=== PATIENT | male | born 2000 | race Caucasian/White ===

== ENCOUNTER 2019-05-09 11:04 | Observation (INO) ==
[2019-05-09] MEDS ORDERED: KETOROLAC 30 MG/ML VIAL IV STA (11:44)
[2019-05-09] MEDS ORDERED: ONDANSETRON INJ 2 MG/ML 2 ML VIAL IV STA (11:44)
[2019-05-09] MEDS ORDERED: SODIUM CHLORIDE 0.9% 1000ML 1,000 ML IV SCH (11:45)
[2019-05-09 12:01] LABS: Basophils # (auto) 0.02 K/uL (0-0.2); Basophils % (auto) 0.2 %; Eosinophils # (auto) 0.05 K/uL (0-0.5); Eosinophils % (auto) 0.4 %; Hematocrit (blood only) 40.5 % (42-52); Hemoglobin 14.8 g/dL (14.0-18.0); Immature Granulocytes # (auto) 0.03 K/uL (0.00-0.02); Immature Granulocytes % (auto) 0.3 %; Lymphocytes # (auto) 1.31 K/uL (1.2-3.4); Mean Corpuscular Hemoglobin 31.1 pg (25-34); Mean Corpuscular Hgb Conc 36.5 g/dL (32-36); Mean Corpuscular Volume 85.1 fL (80-100); Mean Platelet Volume 11.5 fL (7.4-10.4); Monocytes # (auto) 0.84 K/uL (0.11-0.59); Monocytes % (auto) 7.1 %; Neutrophils # (auto) 9.64 K/uL (1.4-6.5); Platelet Count 167 K/uL (130-400); RDW Coefficient of Variation 11.8 % (11.5-14.5); RDW Standard Deviation 36.2 fL (36.4-46.3); Red Blood Count 4.76 M/uL (4.7-6.1); White Blood Count 11.89 K/uL (4.8-10.8)
[2019-05-09 12:18] LABS: Albumin Level 4.4 gm/dl (3.4-5.0); BUN Creatinine Ratio 11.1 (10-20); Calcium 9.8 mg/dl (8.5-10.1); Creatinine Clr Calc Pharmacy 100.8 ml/min; Est GFR (African American) 106.3; Est GFR (Non-African American) 91.7; Potassium 3.7 mmol/L (3.5-5.1)
[2019-05-09 12:21] LABS: Globulin 4.2 gm/dl (2.5-4.0); Total Protein 8.6 gm/dl (6.4-8.2)
--- NOTE | 2019-05-09 12:51 | Emergency Department Note ---
History of Present Illness General Chief complaint: Abdominal Pain Stated complaint: ABD PAIN Time Seen by Provider: 05/09/19 11:39 History of Present Illness Maximum Pain Intensity: 6 This is a 18-year-old male that is otherwise healthy the presents to the emergency department via private vehicle accompanied by female with complaints of "right lower quadrant abdominal pain". The patient notes that without any trauma or injury he developed sudden onset right lower quadrant abdominal pain. He notes that this has been ongoing for the past 36 hours. It is constant. It is worse with movement. He denies any fevers, chills, nausea, vomiting, significant past medical history, history of abdominal surgeries or allergies. He denies taking any medication today. The pain is a 7/10. He denies any dysuria, hematuria, nausea, constipation or diarrhea. Home Medications Home Medications Medication Instructions Recorded Confirmed Type Tums 4 tabs PO UD PRN 05/09/19 05/09/19 History Allergies Allergy/AdvReac Type Severity Reaction Status Date / Time No Known Allergies Allergy Unverified 05/09/19 12:41 Past Med/Surg History Medical History No significant past surgical history Surgical History No significant past medical history Social History Preferred Language: Kazakh Communication Ability: Effective House Manager Required: No Beliefs That Will Affect Care: None Current Living Situation: Other Current Living Situation Comment: student housing, 3 roommates Feels Safe at Home: Yes Safety Concerns: Feels Safe At This Time Smoking Status: Never smoker Hx Alcohol Use: Yes Alcohol type: beer, wine and hard liquor Hx Substance Use: No Review of Systems A total of 10 systems reviewed and were otherwise negative Physical Exam Vital Signs Vital Signs - 24 hr 05/09/19 11:15 05/09/19 12:42 05/09/19 15:18 Temperature 36.5 C Temperature Source Oral Sepsis Recent Fever Within 48 Hours No Sepsis New/Unexplained Change in Mental Status No Sepsis Action Taken by Nursing No Action Required Pulse Rate 73 Pulse Rate [Apical] 60 69 Respiratory Rate 16 18 18 Respiratory Effort / Characteristics Non-Labored Respiratory Depth Normal Blood Pressure 145/97 H Blood Pressure [Left Arm] 152/86 H 173/81 H Blood Pressure Mean 113 Blood Pressure Mean [Left Arm] 108 111 Pulse Oximetry 98 100 98 Oxygen Delivery Method Room Air Room Air Room Air 05/09/19 16:04 05/09/19 18:03 Temperature Temperature Source Sepsis Recent Fever Within 48 Hours Sepsis New/Unexplained Change in Mental Status Sepsis Action Taken by Nursing Pulse Rate 81 Pulse Rate [Apical] 80 Respiratory Rate 18 18 Respiratory Effort / Characteristics Non-Labored Respiratory Depth Normal Blood Pressure 147/75 H Blood Pressure [Left Arm] 149/69 H Blood Pressure Mean Blood Pressure Mean [Left Arm] 95 Pulse Oximetry 99 99 Oxygen Delivery Method Room Air VITAL SIGNS - Vital signs and nursing notes were reviewed. Stable. GENERAL - 18-year-old male appearing his stated age who is in no acute distress but appears to be in pain. Communicates well with provider and answers questions appropriately. SKIN - Without rashes. HEAD - NC/AT. EYES - PERRL with EOMI bilaterally. Sclera anicteric. EARS - No deformities of external structures noted on gross examination bilaterally. NOSE - Midline and without cyanosis. No epistaxis or purulent drainage noted. LUNGS - Chest wall symmetric without accessory muscle use, intercostals retractions, or central cyanosis. Normal vesicular breath sounds CTA B/L. No wheezes, rales, or rhonchi appreciated. CARDIAC - RRR with S1/S2. No murmur, rubs, or gallops appreciated. ABDOMEN - Abdominal contour normal without pulsations or visible masses. BS normoactive all four quadrants. There is right lower quadrant abdominal tenderness on exam. No palpable masses, hepatosplenomegaly, or ascites noted. EXTREMITIES - No clubbing or peripheral cyanosis. No pretibial edema present. +5/5 strength noted in UE/LE bilaterally. NEUROLOGIC - Cranial nerves II through XII grossly intact. Sensory intact to light touch throughout. PSYCH - A&O, and cooperates fully with examiner. Pt is very pleasant and interacts well with examiner. Course Administered Medications Discontinued Medications Bupivacaine HCl (Marcaine 0.5% Mpf) Confirm Administered Dose 30 ml .ROUTE .STK- MED ONE Stop: 05/09/19 18:17 Last Admin: 05/09/19 19:26 Dose: 12 ml Documented by: [id number] Cefazolin Sodium (Ancef) Confirm Administered Dose 1,000 mg .ROUTE .STK-MED ONE Stop: 05/09/19 18:17 Last Admin: 05/09/19 19:25 Dose: 1,000 mg Documented by: [id number] Cefazolin Sodium (Ancef) Confirm Administered Dose 2,000 mg .ROUTE .STK-MED ONE Stop: 05/09/19 19:09 Last Admin: 05/09/19 19:09 Dose: 2,000 mg Documented by: [id number] Heparin Sodium (Porcine) (Heparin Iv Bolus (Cattle Trader Use Only)) Confirm Administered Dose 10,000 units .ROUTE .STK-MED ONE Stop: 05/09/19 18:17 Last Admin: 05/09/19 19:25 Dose: 5,000 units Documented by: [id number] Sodium Chloride (Nss 1000ml) 1,000 mls @ 999 mls/hr IV .Q1H1M ISIDRA Stop: 05/09/19 12:45 Last Infusion: 05/09/19 13:45 Dose: 0 mls/hr Documented by: [id number] Admin: 05/09/19 12:02 Dose: 999 mls/hr Documented by: [id number] Ioversol (Optiray 320 100ml) 93 ml IV ONCE PRN PRN Reason: Interaction Checking Stop: 05/13/19 14:18 Last Admin: 05/09/19 14:20 Dose: 93 ml Documented by: [id number] Ketorolac Tromethamine (Toradol) 30 mg IV NOW STA Stop: 05/09/19 11:45 Last Admin: 05/09/19 12:02 Dose: 30 mg Documented by: [id number] Morphine Sulfate (Morphine Sulfate) 4 mg IV NOW STA Stop: 05/09/19 15:56 Last Admin: 05/09/19 16:01 Dose: 4 mg Documented by: [id number] Ondansetron HCl (Zofran) 4 mg IV NOW STA Stop: 05/09/19 11:45 Last Admin: 05/09/19 12:02 Dose: 4 mg Documented by: [id number] Medical Decision Making Laboratory Data Result diagrams: 05/09/19 11:48 05/09/19 11:48 Lab Results 05/09/19 05/09/19 05/09/19 Range/Units 11:48 11:48 13:00 WBC 11.89 H (4.8-10.8) K/uL RBC 4.76 (4.7-6.1) M/uL Hgb 14.8 (14.0-18.0) g/dL Hct 40.5 L (42-52) % MCV 85.1 (80-100) fL MCH 31.1 (25-34) pg MCHC 36.5 H (32-36) g/dL RDW Std Deviation 36.2 L (36.4-46.3) fL RDW Coeff of Stefani 11.8 (11.5-14.5) % Plt Count 167 (130-400) K/uL MPV 11.5 H (7.4-10.4) fL Immature Gran % (Auto) 0.3 % Neut % (Auto) 81.0 % Lymph % (Auto) 11.0 % Ogle % (Auto) 7.1 % Eos % (Auto) 0.4 % Baso % (Auto) 0.2 % Immature Gran # (Auto) 0.03 H (0.00-0.02) K/uL Neut # (Auto) 9.64 H (1.4-6.5) K/uL Lymph # (Auto) 1.31 (1.2-3.4) K/uL Ogle # (Auto) 0.84 H (0.11-0.59) K/uL Eos # (Auto) 0.05 (0-0.5) K/uL Baso # (Auto) 0.02 (0-0.2) K/uL Sodium 139 (136-145) mmol/L Potassium 3.7 (3.5-5.1) mmol/L Chloride 103 (98-107) mmol/L Carbon Dioxide 27 (21-32) mmol/L Anion Gap 9.0 (3-11) BUN 13 (7-18) mg/dl Creatinine 1.15 (0.6-1.4) mg/dl Est Cr Clr Drug Dosing 100.8 ml/min Est GFR ( Amer) 106.3 Est GFR (Non-Af Amer) 91.7 BUN/Creatinine Ratio 11.1 (10-20) Glucose 101 H (70-99) mg/dl Calcium 9.8 (8.5-10.1) mg/dl Total Bilirubin 2.0 H (0.2-1) mg/dl AST 23 (15-37) U/L ALT 25 (12-78) U/L Alkaline Phosphatase 80 (45-117) U/L Total Protein 8.6 H (6.4-8.2) gm/dl Albumin 4.4 (3.4-5.0) gm/dl Globulin 4.2 H (2.5-4.0) gm/dl Albumin/Globulin Ratio 1.0 (0.9-2) Lipase 61 L (73-393) U/L Urine Color Yellow Urine Appearance Clear (Clear) Urine pH 7.0 (4.5-7.5) Ur Specific [place] 1.027 (1.000-1.030) Urine Protein Negative (Negative) Urine Glucose (UA) Negative (Negative) Urine Ketones Negative (Negative) Urine Blood Negative (Negative) Urine Nitrite Negative (Negative) Urine Bilirubin Negative (Negative) Urine Urobilinogen Negative (Negative) Ur Leukocyte Esterase Negative (Negative) Imaging Data Radiologist's Impression: CT abd pelvis oral and IV con CLINICAL HISTORY: 18 years-old Male presenting with RLQ abd pain. TECHNIQUE: Multidetector CT of the abdomen and pelvis was performed after the administration of oral and intravenous contrast. IV contrast: 93 mL of Optiray 320. One or more dose lowering techniques were used consistent with the principles of ALARA (as low as reasonably achievable), including automatic exposure control, mA or kV adjustment to individual patient size, and/or use of iterative reconstruction. COMPARISON: None. CT DOSE (mGy.cm): The estimated cumulative dose is 274.63 mGy.cm. FINDINGS: Environmental Engineer topogram: Unremarkable. Lung bases: Normal heart size. No pericardial or pleural effusion. No focal infiltrate or nodule at the lung bases. Liver: Normal morphology. No liver lesion. Patent hepatic vasculature. Biliary: No intrahepatic or extrahepatic biliary ductal dilatation. Normal gallbladder. Pancreas: Normal. Spleen: Normal. Adrenal glands: Normal. Kidneys and ureters: Normal. No hydronephrosis. Bladder: Normal. Pelvic organs: Prostate and seminal vesicles normal. Bowel: The appendix is dilated and contains several appendicoliths, one near the base, which may be obstructing. The appendiceal mucosa is not well delineated, which may be in part due to adjacent opacified loops of bowel. The appendix does not opacify with contrast beyond its base. The appendix measures over a centimeter in diameter. No bowel obstruction. Peritoneal cavity: Small free fluid in the pelvis on expected for a male patient of this age. No free intraperitoneal gas. Lymph nodes: No enlarged lymph nodes in the abdomen or pelvis. Vasculature: Aorta and IVC patent and normal in caliber. Abdominal wall: Normal. Musculoskeletal: Normal. IMPRESSION: 1. Findings highly suspicious for acute appendicitis. Portal delineation of the appendiceal wall and mucosa is most likely due to the degree of opacification of adjacent bowel with positive oral contrast versus, less likely, wall necrosis. No evidence of abscess or other complication. Surgical consultation is advised. The report will be called/faxed according to standard departmental protocol. Electronically signed by: Pedro Dent M.D. 05/09/2019 2:35 PM [facility] Narrative Patient was seen and evaluated as above. Review was performed of nursing notes and vital signs. After obtaining a thorough history and physical examination the above work up was performed. He presents to us today with abdominal pain. He is nontoxic on exam. His exam is concerning for that of acute appendicitis. IV access was established. He was given Toradol for pain, Zofran for nausea and fluids. He was reevaluated with some improvement of symptoms. IV and oral contrasted CT of the abdomen and pelvis was ordered. This is concerning for acu te appendicitis. CBC reveals leukocytosis but no concerning anemia. No emergent metabolic abnormality. Urinalysis is negative. I discussed the findings with the on-call general surgeon. Patient will be taken to the operative suite for further evaluation and management. He was also given morphi ne for pain. In the evaluation and treatment of this patient, the following differential diagnoses were considered: ASC, DC, Pneumonia, GERD, Cholecystitis, Ascending Cholangitis, acute appendicitis, Cholydocholithiasis, Bowel Obstruction, PE, Amongst Others. Impression & Plan Appendicitis Discharge Plan Visit Data *Final* Discharge Date/Time: 05/09/19 18:03 Chief Complaint: Abdominal Pain Stated Complaint: ABD PAIN ED Provider: Arnie Reynoso ED Midlevel Provider: Elroy Moreira Discharge Problem: Appendicitis Patient Disposition: Admitted As Inpatient Condition: Good Discharge Instructions Interventions: ED Discharge Assessment Last Done: 05/09/19 18:03
[2019-05-09 13:12] LABS: Appearance Urine Clear (Clear); Bilirubin Urine Negative (Negative); Blood Urine Negative (Negative); Color Urine Yellow; Glucose Urine UA Negative (Negative); Ketones Urine Negative (Negative); Leukocyte Esterase Urine Negative (Negative); Nitrite Urine Negative (Negative); Protein Urine Negative (Negative); Specific Gravity Urine 1.027 (1.000-1.030); Urobilinogen Urine Negative (Negative)
[2019-05-09] MEDS ORDERED: IOVERSOL 100ml IV PRN (14:19)
--- NOTE | 2019-05-09 14:36 | CT Scan Report ---
CT abd pelvis oral and IV con CLINICAL HISTORY: 18 years-old Male presenting with RLQ abd pain. TECHNIQUE: Multidetector CT of the abdomen and pelvis was performed after the administration of oral and intravenous contrast. IV contrast: 93 mL of Optiray 320. One or more dose lowering techniques wer e used consistent with the principles of ALARA (as low as reasonably achievable), including automatic exposure control, mA or kV adjustment to individual patient size, and/or use of iterative reconstruc tion. COMPARISON: None. CT DOSE (mGy.cm): The estimated cumulative dose is 274.63 mGy.cm. FINDINGS: Language Translator topogram: Unremarkable. Lung bases: Normal heart size. No pericardial or pleural effusion. No focal infiltrate or nodule at t he lung bases. Liver: Normal morphology. No liver lesion. Patent hepatic vasculature. Biliary: No intrahepatic or extrahepatic biliary ductal dilatation. Normal gallbladder. Pancreas: Normal. Spleen: Normal. Adrenal glands: Normal. Kidneys and ureters: Normal. No hydronephrosis. Bladder: Normal. Pelvic organs: Prostate and seminal vesicles normal. Bowel: The appendix is dilated and contains several appendicoliths, one near the base, which may be o bstructing. The appendiceal mucosa is not well delineated, which may be in part due to adjacent opaci fied loops of bowel. The appendix does not opacify with contrast beyond its base. The appendix measur es over a centimeter in diameter. No bowel obstruction. Peritoneal cavity: Small free fluid in the pelvis on expected for a male patient of this age. No free intraperitoneal gas. Lymph nodes: No enlarged lymph nodes in the abdomen or pelvis. Vasculature: Aorta and IVC patent and normal in caliber. Abdominal wall: Normal. Musculoskeletal: Normal. IMPRESSION: 1. Findings highly suspicious for acute appendicitis. Portal delineation of the appendiceal wall and mucosa is most likely due to the degree of opacification of adjacent bowel with positive oral contra st versus, less likely, wall necrosis. No evidence of abscess or other complication. Surgical consult ation is advised. The report will be called/faxed according to standard departmental protocol. Electronically signed by: Pedro Dent M.D. 05/09/2019 2:35 PM
--- NOTE | 2019-05-09 15:48 | History & Physical Report ---
Date of Service May 09, 2019 Assessment & Plan (1) Appendicitis: This patient's history, physical findings, laboratories and CT findings are consistent with appendicitis. I reviewed the CT images as well as the report. I have recommended a laparoscopic appendectomy. I explained the p ossible need to convert to an open procedure. I explained the possible complications associated with those procedures. The patient wishes to go ahead with surgery and has signed a consent form. History of Present Illness Chief Complaint: Right lower quadrant abdominal pain Primary Care Provider: [facility] This is a 18-year-old male presented to the emergency room with an approximate 36-hour history of pain in the right lower quadrant. It began in the periumbilical region but then migrated to the right lower quadrant where is presently located. It is sharp when he tries to move. There is a baseline dull ache. He had some mild nausea this morning. He did not vomit. He has had no fever or chills. He had no diarrhea or constipation and he denies melena and hematochezia. He has had no dysuria or hematuria. He is never had pain like this in the past. The pain is exacerbated by motion. Allergies Allergy/AdvReac Type Severity Reaction Status Date / Time No Known Allergies Allergy Unverified 05/09/19 12:41 Home Medications Home Medications Medication Instructions Recorded Confirmed Type Tums 4 tabs PO UD PRN 05/09/19 05/09/19 History Past Med/Surg History Medical History No significant past surgical history Surgical History No significant past medical history Social History Feels Safe at Home: Yes Smoking Status: Never smoker Hx Alcohol Use: Yes Review of Systems Review of Systems: All systems reviewed & are unremarkable except as noted in HPI & below Physical Exam Constitutional: no acute distress Neck: trachea midline Respiratory: normal respiratory effort, lungs clear to auscultation Cardiovascular: Rate/Rhythm: + abnormal rate and + abnormal rhythm Gastrointestinal (Abdomen): Inspection/Auscultation: abdomen normal to inspection; abdomen not distended Percussion/Palpation: + abdomen tender (Right lower quadrant) and abdomen soft; abdomen not rigid Skin: no rashes, warm and dry Lymphatic: no cervical lymphadenopathy Results & Data Vital Signs (Past 12 Hours) Vital Signs Temp Pulse Pulse Resp BP BP Pulse Ox 05/09/19 15:18 69 18 173/81 H 98 05/09/19 12:42 60 18 152/86 H 100 05/09/19 11:15 36.5 C 73 16 145/97 H 98 Laboratory Results 05/09/19 05/09/19 05/09/19 Range/Units 13:00 11:48 11:48 WBC 11.89 H (4.8-10.8) K/uL RBC 4.76 (4.7-6.1) M/uL Hgb 14.8 (14.0-18.0) g/dL Hct 40.5 L (42-52) % MCV 85.1 (80-100) fL MCH 31.1 (25-34) pg MCHC 36.5 H (32-36) g/dL RDW Std Deviation 36.2 L (36.4-46.3) fL RDW Coeff of Stefani 11.8 (11.5-14.5) % Plt Count 167 (130-400) K/uL MPV 11.5 H (7.4-10.4) fL Immature Gran % (Auto) 0.3 % Neut % (Auto) 81.0 % Lymph % (Auto) 11.0 % [place]y % (Auto) 7.1 % Eos % (Auto) 0.4 % Baso % (Auto) 0.2 % Immature Gran # (Auto) 0.03 H (0.00-0.02) K/uL Neut # (Auto) 9.64 H (1.4-6.5) K/uL Lymph # (Auto) 1.31 (1.2-3.4) K/uL Emery # (Auto) 0.84 H (0.11-0.59) K/uL Eos # (Auto) 0.05 (0-0.5) K/uL Baso # (Auto) 0.02 (0-0.2) K/uL Sodium 139 (136-145) mmol/L Potassium 3.7 (3.5-5.1) mmol/L Chloride 103 (98-107) mmol/L Carbon Dioxide 27 (21-32) mmol/L Anion Gap 9.0 (3-11) BUN 13 (7-18) mg/dl Creatinine 1.15 (0.6-1.4) mg/dl Est Cr Clr Drug Dosing 100.8 ml/min Est GFR ( Amer) 106.3 Est GFR (Non-Af Amer) 91.7 BUN/Creatinine Ratio 11.1 (10-20) Glucose 101 H (70-99) mg/dl Calcium 9.8 (8.5-10.1) mg/dl Total Bilirubin 2.0 H (0.2-1) mg/dl AST 23 (15-37) U/L ALT 25 (12-78) U/L Alkaline Phosphatase 80 (45-117) U/L Total Protein 8.6 H (6.4-8.2) gm/dl Albumin 4.4 (3.4-5.0) gm/dl Globulin 4.2 H (2.5-4.0) gm/dl Albumin/Globulin Ratio 1.0 (0.9-2) Lipase 61 L (73-393) U/L Urine Color Yellow Urine Appearance Clear (Clear) Urine pH 7.0 (4.5-7.5) Ur Specific [place] 1.027 (1.000-1.030) Urine Protein Negative (Negative) Urine Glucose (UA) Negative (Negative) Urine Ketones Negative (Negative) Urine Blood Negative (Negative) Urine Nitrite Negative (Negative) Urine Bilirubin Negative (Negative) Urine Urobilinogen Negative (Negative) Ur Leukocyte Esterase Negative (Negative) Diagnostic Findings CT abd pelvis oral and IV con CLINICAL HISTORY: 18 years-old Male presenting with RLQ abd pain. TECHNIQUE: Multidetector CT of the abdomen and pelvis was performed after the administration of oral and intravenous contrast. IV contrast: 93 mL of Optiray 320. One or more dose lowering techniques were used consistent with the principles of ALARA (as low as reasonably achievable), including automatic exposure control, mA or kV adjustment to individual patient size, and/or use of iterative reconstruction. COMPARISON: None. CT DOSE (mGy.cm): The estimated cumulative dose is 274.63 mGy.cm. FINDINGS: Parer topogram: Unremarkable. Lung bases: Normal heart size. No pericardial or pleural effusion. No focal infiltrate or nodule at the lung bases. Liver: Normal morphology. No liver lesion. Patent hepatic vasculature. Biliary: No intrahepatic or extrahepatic biliary ductal dilatation. Normal gallbladder. Pancreas: Normal. Spleen: Normal. Adrenal glands: Normal. Kidneys and ureters: Normal. No hydronephrosis. Bladder: Normal. Pelvic organs: Prostate and seminal vesicles normal. Bowel: The appendix is dilated and contains several appendicoliths, one near the base, which may be obstructing. The appendiceal mucosa is not well delineated, which may be in part due to adjacent opacified loops of bowel. The appendix does not opacify with contrast beyond its base. The appendix measures over a centimeter in diameter. No bowel obstruction. Peritoneal cavity: Small free fluid in the pelvis on expected for a male patient of this age. No free intraperitoneal gas. Lymph nodes: No enlarged lymph nodes in the abdomen or pelvis. Vasculature: Aorta and IVC patent and normal in caliber. Abdominal wall: Normal. Musculoskeletal: Normal. IMPRESSION: 1. Findings highly suspicious for acute appendicitis. Portal delineation of the appendiceal wall and mucosa is most likely due to the degree of opacification of adjacent bowel with positive oral contrast versus, less likely, wall necrosis. No evidence of abscess or other complication. Surgical consultation is advised. The report will be called/faxed according to standard departmental protocol.
[2019-05-09] MEDS ORDERED: MoRPHine SULFATE 4 MG/ML 1 ML CARP\\VIAL IV STA (15:55)
[2019-05-09] MEDS ORDERED: ROCURONIUM BROMIDE 10 MG/ML 5 ML VIAL ONE (16:55)
[2019-05-09] MEDS ORDERED: LIDOCAINE HCL 2% 2 ML VIAL/AMP(20MG/ML) INFIL ONE (16:55)
[2019-05-09] MEDS ORDERED: PROPOFOL IV EMULSION 10 MG/ML 20 ML VIAL IV ONE (16:55)
[2019-05-09] MEDS ORDERED: ONDANSETRON INJ 2 MG/ML 2 ML VIAL ONE (16:55)
[2019-05-09] MEDS ORDERED: SUCCINYLCHOLINE CHLORIDE 20 MG/ML 10 ML VIAL ONE (16:55)
[2019-05-09] MEDS ORDERED: DEXAMETHASONE SOD INJ 4 MG/ML VIAL ONE (16:55)
--- NOTE | 2019-05-09 17:05 | Anesthesiology Consultation ---
Date of Service May 09, 2019 Assessment & Plan (1) Encounter for pre-operative examination: Chart Review Chart Review: Acceptable Risk for Surgery and Patient NOT seen in Pre Admission Testing Consults Requested none ASA [id number] Proposed Anesthesia Anesthesia Type: General Risk / Benefits Reviewed With: PT / POA / Parent / Guardian, Accepts Plan and Informed Consent Obtained History Surgery Operation Date: 05/09/19 18:00 Proposed Procedures p Laparoscopic Appendectomy - Jamie Weber MD Height/Weight Height: 5 ft 11 in Weight: 69 kg Allergies Allergy/AdvReac Type Severity Reaction Status Date / Time No Known Allergies Allergy Unverified 05/09/19 12:41 Medications Home Medications Medication Instructions Recorded Confirmed Last Taken Tums 4 tabs PO UD PRN 05/09/19 05/09/19 05/08/19 Active Medications Generic Name Dose Route Start Last Admin Trade Name Freq PRN Reason Stop Dose Admin Ioversol 93 ml 05/09/19 14:19 05/09/19 14:20 Optiray 320 100ml IV 05/13/19 14:18 93 ml ONCE PRN Administration Interaction Checking NPO Date Last Intake of Fluids: 05/09/19 Time Last Intake of Fluids: 07:00 Last Intake of Fluids Comment: Finished contrast at 1405 Date Last Intake of Solids: 05/08/19 Time Last Intake of Solids: 23:59 Past Medical History Medical History No significant past surgical history Exercise / Class Metabolic Activity 1 > 8 Run/Swim/Ski/Tennis Negative for chest pain or shortness of breath. Past Surgical History Surgical History No significant past medical history Past Anesthesia History No Family Hx of Anesthesia Complications History of PONV History of PONV (Family history of PONV) and Hx of Motion Sickness Social History Smoking Status: Never smoker Hx Alcohol Use: Yes Hx Substance Use: No Review of Systems Patient denies active symptoms of GERD. No nausea or vomiting today Physical Exam Vital Signs Last Vital Signs Temp 36.5 C 05/09/19 11:15 Pulse 81 05/09/19 18:03 Resp 18 05/09/19 18:03 BP 147/75 H 05/09/19 18:03 Pulse Ox 99 05/09/19 18:03 Constitutional not obese ENMT Mouth: no TMJ abnormality and oral opening not small Thyromental Distance: > or= 3.5 Finger Breadths Mallampati Class: I Neck normal visual inspection; neck extension not limited Respiratory normal respiratory effort Auscultation: lungs clear to auscultation bilaterally Cardiovascular Rate/Rhythm: regular rate and regular rhythm Heart Sounds: no murmur Neurologic moves all extremities Psychiatric Orientation: alert and oriented x 3 Testing Laboratory Results 05/09/19 11:48 05/09/19 11:48 Urine Color Yellow 05/09/19 13:00 Urine Appearance Clear (Clear) 05/09/19 13:00 Urine pH 7.0 (4.5-7.5) 05/09/19 13:00 Ur Specific [place] 1.027 (1.000-1.030) 05/09/19 13:00 Urine Protein Negative (Negative) 05/09/19 13:00 Urine Glucose (UA) Negative (Negative) 05/09/19 13:00 Urine Ketones Negative (Negative) 05/09/19 13:00 Urine Nitrite Negative (Negative) 05/09/19 13:00 Ur Leukocyte Esterase Negative (Negative) 05/09/19 13:00
[2019-05-09] MEDS ORDERED: MIDAZOLAM HCL 1 MG/ML 2ML VIAL ONE (18:06)
[2019-05-09] MEDS ORDERED: fentaNYL citrate 100 MCG/2 ML VIAL ONE ×4 (18:06→20:00)
[2019-05-09] MEDS ORDERED: CEFAZOLIN 250 MG/ML 1 GM VIAL ONE ×2 (18:16→19:08)
[2019-05-09] MEDS ORDERED: BUPIVACAINE 0.5 % 5 MG/1 ML MPF 30ML VIAL ONE (18:16)
[2019-05-09] MEDS ORDERED: HEPARIN (PORCINE) 1000 UNIT/ML 10 ML (CATH LAB USE ONLY) ONE (18:16)
[2019-05-09] MEDS ORDERED: PROMETHAZINE HCL 12.5 MG in SODIUM CHLORIDE 0.9% 50 ML IV PRN (19:14)
[2019-05-09] MEDS ORDERED: ePHEDrine sulfate 50 MG/ML AMP IV PRN (19:14)
[2019-05-09] MEDS ORDERED: ONDANSETRON INJ 2 MG/ML 2 ML VIAL IV PRN (19:14)
[2019-05-09] MEDS ORDERED: ATROPINE SULFATE 0.1 MG/ML 10ML SYR IV PRN (19:14)
[2019-05-09] MEDS ORDERED: fentaNYL citrate 100 MCG/2 ML VIAL IV PRN (19:14)
[2019-05-09] MEDS ORDERED: HYDROmorphone INJ 2 MG/ML SYR/VIAL IV PRN (19:14)
[2019-05-09] MEDS ORDERED: NEOSTIGMINE METHYLSULFATE 5 MG/5 ML SYR ONE (19:21)
[2019-05-09] MEDS ORDERED: GLYCOPYRROLATE 0.2 MG/ML VIAL ONE (19:21)
--- NOTE | 2019-05-09 20:07 | Post Operative Brief Note ---
Immediate Post Op Note v1 Date of Surgery May 09, 2019 Pre & Post Diagnosis Operation Date: 05/09/19 18:00 Pre-Op Diagnosis: acute appendicitis Post-Op Diagnosis: acute appendicitis Procedure Operation Date: 05/09/19 18:00 Actual Procedures p Laparoscopic Appendectomy(Not Applicable) - Jamie Weber MD Surgeon Jamie Weber MD Equipment Washer None Estimated Blood Loss 5 Findings Consistent with Post-Op Diagnosis Specimens Appendix Drains Scott Catheter Anesthesia Type General Complications none
--- NOTE | 2019-05-09 20:41 | Anesthesiology Progress Note ---
Date of Service May 09, 2019 Anesthesia Post Procedure Vital Signs Vital Signs: Temp Pulse Pulse Resp BP BP Pulse Ox 05/09/19 20:35 70 16 127/64 95 05/09/19 20:28 36.9 C 73 16 108/70 100 05/09/19 18:03 81 18 147/75 H 99 05/09/19 16:04 80 18 149/69 H 99 05/09/19 15:18 69 18 173/81 H 98 05/09/19 12:42 60 18 152/86 H 100 05/09/19 11:15 36.5 C 73 16 145/97 H 98 Pain Intensity Right Lower Abdomen: Pain Intensity: 6 Transfer of Care Handoff Completed per policy Notes Mental Status: alert / awake / arousable and participated in evaluation Patient Amnestic to Procedure: Yes Nausea / Vomiting: adequately controlled Pain: adequately controlled Airway Patency, RR, SpO2: stable & adequate BP & HR: stable & adequate Hydration State: stable & adequate Anesthetic Complications: no major complications apparent and Pt Satisfied with anesthetic care
[2019-05-09] MEDS ORDERED: MoRPHine SULFATE 4 MG/ML 1 ML CARP\\VIAL IV PRN (21:07)
[2019-05-09] MEDS: D5W AND 1/2NSS + 20MEQ KCL 20 MEQ/1,000 ML BAG IV SCH (22:18)
--- NOTE | 2019-05-09 22:28 | Operative Report ---
DATE OF OPERATION: 05/09/2019 PREOPERATIVE DIAGNOSIS: Appendicitis. POSTOPERATIVE DIAGNOSIS: Appendicitis. PROCEDURE: Laparoscopic appendectomy. SURGEON: Jamie Weber MD FINDINGS: The patient had hyperemia and appeared to have early gangrenous appendicitis in the distal 4/5. It was a short appendix. The proximal 1 cm was normal. The cecum at the proximal appendix was normal. The visible bowel appeared normal. There was no evidence of perforation or abscess. TECHNIQUE: The patient was given a general anesthetic and the area was prepped and draped in the usual sterile fashion. Transverse incision was made below the umbilicus, carried down through the subcutaneous tissue to the fascia which was grasped with 2 Alexandra clamps and incised between. The peritoneum was identified, incised, and the introducer was placed bluntly. The abdomen was then insufflated to a pressure of 15 mmHg with carbon dioxide. The lower midline introducer was placed under direct vision through small skin incision. The appendix was adherent to the anterior abdominal wall and with insufflation it fell away from the abdominal wall. The distal 4/5 of the appendix was surrounded in omentum. I was able to grasp the base of the appendix and placed lateral traction and separate the omental attachments with ease. Once that was freed, I was able to elevate the appendix and identify the base of the appendix and the mesoappendix away from the base of the appendix using blunt dissection. The mesoappendix was divided using the Endo-MIGUEL stapler. That allowed me to confirm that I was at the base of the appendix and the appendix was then amputated using the Endo-MIGUEL as well. The appendix was placed into an Endobag and brought out through the left lower quadrant introducer site. That introducer was replaced. The right lower quadrant was irrigated and the irrigation was removed. There was a small area on the cecum that I grasped that was oozing. This was easily controlled with minimal cautery. The area was irrigated again. The 2 staple lines were inspected and there was no bleeding. The irrigation from the right upper quadrant was removed as was the irrigation in the pelvis. The gas was allowed to escape and the introducers were removed. The fascia of the umbilical and left lower quadrant introducer sites was closed with interrupted 0 Vicryl and skin of all the incisions was closed with 4-0 Monocryl in either an interrupted or running subcuticular fashion. Skin was anesthetized with 0.5% Marcaine. The skin was cleansed, dried, benzoin placed, Steri-Strips applied. Estimated blood loss was 5 mL. Sponge, needle and instrument counts were correct prior to closure. The patient tolerated the surgical procedure without complication and was transferred to recovery. I attest to the content of the Intraoperative Record and any orders documented therein. Any exception s are noted below.
[2019-05-09] MEDS: OXYCODONE/ACETAMINOPHEN 5mg/325mg TAB PO PRN (23:41)
[2019-05-10] MEDS: D5W AND 1/2NSS + 20MEQ KCL 20 MEQ/1,000 ML BAG IV SCH (07:47)
--- NOTE | 2019-05-10 08:30 | Anesthesiology Progress Note ---
Date of Service May 10, 2019 Anesthesia Post Procedure Vital Signs Vital Signs: Temp Pulse Pulse Pulse Resp BP BP 05/10/19 08:08 37.6 C H 67 60 16 104/63 05/10/19 07:01 37.6 C H 60 16 104/63 05/10/19 03:15 37.1 C 90 16 108/55 L 05/10/19 00:10 37.2 C 72 16 104/56 L 05/09/19 23:05 37.3 C 65 16 130/69 05/09/19 22:00 37.1 C 73 20 129/70 05/09/19 21:31 36.6 C 63 18 131/63 05/09/19 21:08 37.6 C H 80 17 112/70 05/09/19 21:05 37.6 C H 79 16 112/70 05/09/19 20:55 36.8 C 67 16 121/59 L 05/09/19 20:45 70 16 122/55 L 05/09/19 20:35 70 16 127/64 05/09/19 20:28 36.9 C 73 16 108/70 05/09/19 18:03 81 18 147/75 H 05/09/19 16:04 80 18 149/69 H 05/09/19 15:18 69 18 173/81 H 05/09/19 12:42 60 18 152/86 H 05/09/19 11:15 36.5 C 73 16 145/97 H Pulse Ox 05/10/19 08:08 97 05/10/19 07:01 97 05/10/19 03:15 99 05/10/19 00:10 97 05/09/19 23:05 100 05/09/19 22:00 98 05/09/19 21:31 100 05/09/19 21:08 98 05/09/19 21:05 98 05/09/19 20:55 96 05/09/19 20:45 96 05/09/19 20:35 95 05/09/19 20:28 100 05/09/19 18:03 99 05/09/19 16:04 99 05/09/19 15:18 98 05/09/19 12:42 100 05/09/19 11:15 98 Pain Intensity Right Lower Abdomen: Pain Intensity: 1 Notes Mental Status: alert / awake / arousable and participated in evaluation Nausea / Vomiting: adequately controlled Pain: adequately controlled Airway Patency, RR, SpO2: stable & adequate BP & HR: stable & adequate Hydration State: stable & adequate
[2019-05-10] MEDS ORDERED: ACETAMINOPHEN 325 MG TAB PO PRN (09:03)
--- NOTE | 2019-05-10 09:06 | Surgery Progress Note ---
Date of Service May 10, 2019 Assessment & Plan (1) Appendicitis: POD # 1 s/p laparoscopic appendectomy -vitals stable, afebrile - post op pain moderate - no n/v - good urine output Plan: Continue PO Percocet prn pain, add tylenol Advance to regular diet encouraged ambulation will check on later this afternoon , if tolerates regular diet and pain better controlled plan to d/c home this afternoon will send home with 7 days of PO Augmentin Dr. Weber has seen and examined pt, agrees with above Subjective sore at incision sites ambulated hallway, very sore no n/v, tolerating clears wanting more to eat some burning on urination but improved second time Physical Exam Constitutional: WD/WN, vitals as above no acute distress Gastrointestinal (Abdomen): Inspection/Auscultation: abdomen normal to inspection; abdomen not distended Percussion/Palpation: + abdomen tender (at incision sites) and abdomen soft; no guarding and abdomen not rigid Skin: no rashes, warm and dry + incision (covered with dressings, clean/dry) Psychiatric: A+Ox3, euthymic affect Results & Data Vital Signs (Past 12 Hours) Vital Signs Temp Pulse Pulse Resp BP Pulse Ox 05/10/19 08:08 37.6 C H 67 60 16 104/63 97 05/10/19 07:01 37.6 C H 60 16 104/63 97 05/10/19 03:15 37.1 C 90 16 108/55 L 99 05/10/19 00:10 37.2 C 72 16 104/56 L 97 05/09/19 23:05 37.3 C 65 16 130/69 100 05/09/19 22:00 37.1 C 73 20 129/70 98 05/09/19 21:31 36.6 C 63 18 131/63 100 05/09/19 21:08 37.6 C H 80 17 112/70 98 05/09/19 21:05 37.6 C H 79 16 112/70 98
[2019-05-10] MEDS: OXYCODONE/ACETAMINOPHEN 5mg/325mg TAB PO PRN (16:20)
--- NOTE | 2019-05-11 09:35 | Discharge Summary ---
Date of Service May 11, 2019 Admission HPI Per Admitting Provider This is a 18-year-old male presented to the emergency room with an approximate 36-hour history of pain in the right lower quadrant. It began in the periumbilical region but then migrated to the right lower quadrant where is presently located. It is sharp when he tries to move. There is a baseline dull ache. He had some mild nausea this morning. He did not vomit. He has had no fever or chills. He had no diarrhea or constipation and he denies melena and hematochezia. He has had no dysuria or hematuria. He is never had pain like this in the past. The pain is exacerbated by motion. Principal Diagnosis Acute appendicitis with appendicolith Discharge Data Allergies Allergy/AdvReac Type Severity Reaction Status Date / Time No Known Allergies Allergy Unverified 05/09/19 12:41 Procedures Performed Operation Date: 05/09/19 18:00 Actual Procedures p Laparoscopic Appendectomy(Not Applicable) - Jamie Weber MD Ordered Studies 05/09/19 11:44 CT abd pelvis oral and IV con Stat Hospital Course (1) Appendicitis: Patient was taken to operating room for laparoscopic appendectomy possible open from the emergency department by Dr. Weber. Patient found to have acute gangrenous appendicitis however there was no perforation or abscess. Patient tolerated procedure well and was transferred to recovery room and then to medical/surgical floor for postoperative care. Started on IV fluids, PO Percocet and Tylenol prn pain with breakthrough IV morphine, IV Zofran prn nausea, activity as tolerated, and clear liquids. POD # 1 patient evaluated, vitals stable, afebrile. Postop pain moderate at incision sites. Tolerating clear liquids, hungry. No n/v. Ambulated hallway with some discomfort. Some urinary burning on urination but improved second time around. Diet was advanced to regular diet for lunch. Patient re-evaluated early afternoon. Tolerated regular food, pain controlled with Tyelnol. Patient discharged home on POD # 1 in stable condition. Total Time Total Time Spent Total Time Spent (In Minutes): 30 minutes Total Time Includes: Examination of the Patient, Discharge Planning and Medication Reconciliation Discharge Plan Discharge Items Patient Disposition: Home - Self-Care Reason For Visit: APPENDICITIS Discharge Diagnosis: same Condition: Good Discharge Goals: Decrease discomfort and Improve function Activity: Per 'Additional Instructions' section Non-emergency contact: Surgeon Call non-emergency contact if: your pain is not controlled, your pain is unusual for you, your pain is concerning for you, you have a fever, your temperature is above 101, your wound has increased redness and your wound has increased drainage Follow-up/Referrals: [facility] [Primary Care Provider] - Diet: Regular Addtl Provider Instructions: Post-Surgical ~Discharge Instructions Activity Recommendations: - lifting limitation: (10 pounds for 2 weeks), - exercise/sex/sports limit: (nonstrenuous for 2 weeks), - driving or machine use limit: (none for 1 week), - Shower/bathe limit: (may shower beginning tomorrow) Diet: - Resume previous diet SPECIAL CARE INSTRUCTIONS: - May shower in 24 hours. Let water run over area and pat dry. - Leave steri strips on for one week. - Call the surgeon's office with any questions or concerns - - (ex. temperature higher than 101 degrees F, excessive bleeding or pain). MEDICATIONS: - Resume previous medications unless instructed otherwise by your surgeon. - Ibuprofen 600 mg every 6 hours with food - Percocet 1 every 4 hours, as needed for pain FOLLOW UP VISIT: - If not already scheduled, please call the office to schedule a two week follow-up appointment. Office number Prescriptions: New oxycodone-acetaminophen 5-325 mg tablet 1 tab PO Q4H PRN (Reason: pain) Qty: 10 RF: 0 amoxicillin-pot clavulanate [Augmentin] 875-125 mg tablet 1 tab PO BID Qty: 14 RF: 0 Continued Tums 4 tabs PO UD PRN (Reason: Gi Upset) RF: 0 Stand-Alone Forms: [employer], Work/School Release (Inpt) [employer]/Other Patient Handouts: Surgery Prevent DVT After, Appendectomy After Discharge Orders: Discharge Order (Routine); Ordered 05/10/19 Ordered By: Bessie Carrasco Admission Data Admit Date/Time: 05/09/19 20:19 Attending Provider: Jamie Weber Admit Provider: Jamie Weber Primary Care Provider: [facility] Service: Surgical Services Other Interventions: Discharge Summary Assessment (RN) Last Done: 05/10/19 15:51 Pending Studies at Discharge: Yes (appendix pathology, will be reviewed at follow-up visit) DC Date/Time DO NOT enter until pt leaves facility: 05/10/19 16:40
== END 2019-05-10 16:40 | disposition home or self-care (01) ==
LOC: ED 11:04 → 3N 18:03 → ASU 18:03
DX: K37 Unspecified appendicitis